=== PATIENT | female | born 1940 | race Caucasian/White ===

== ENCOUNTER → 2018-04-08 | Outpatient (CLI) | payer MEDICARE, OTHER ==
[~2018-04-08] MED LIST: ACET325 PO; ACETASOL; AMOCLA875 PO; ASCO500 PO; ASPI325; ASPI81CH PO; ASPI81EC PO; ASTEPRO; CALCAVITD PO; CALCIT950 PO; CALGLU500; CETI5; CETI5 PO; CINNAMON CAPS; CRANBERRY CAPS; CRANBERRY CAPSULE PO; CREON DR 12,001 EACH; CYAN1000 PO; CYAN500 PO; CYCL0.05OP; CYCL0.05OP OP; Cortisporin Ear10 M1; ERGO50000 PO; FEXO180 PO; FEXO60; FISH1000 PO; FLAX PO; FLUO10 PO; FLUT.05NI; GABA100 PO; GABA300 PO; GABA600 PO; GARLIC; GLUC500; GLUCOSAMINE/MSM; GLUCOSAMINE/MSM PO; GLYMET1.25; GLYMET5 PO; HYDACE10B PO; HYDACE5 PO; HYOS.125; IPRA.03NI; Keflex500 MG PO; LATA.005SO; LEVFLO500 PO; LEVSOD100; LEVSOD100 PO; LEVSOD50 PO; MECL25 PO; METF500; MOMENI; MULVITMINF PO; NAPR550 PO; NIAC500 PO; OPTLUBOPOA OD; PARO12.5; PHENA200 PO; PRAV20 PO; PSEU120ER PO; QUIN300 PO; QUININE; RECTICARE BOTHEYES; RESTASIS; ROSU5 PO; SELENIUM; SELENIUM PO; SUDAFED; SULTRIDS PO; TOCO1000 PO; TOCO400 PO; TRAACE PO; TRAM50 PO; TRAV.004OP OD; VARE1 PO; VIT E; Valium5 MG PO; [UNRECOGNIZED DRUG - CODE]; [UNRECOGNIZED DRUG - OTHER]
== END | disposition home or self-care (01) ==
LOC: LAB EV 16:22 → LAB SHORT 16:22
DX: N76.0 Acute vaginitis (principal)
CPT/HCPCS: 87086

== ENCOUNTER → 2018-11-17 | Outpatient (CLI) | payer MEDICARE, OTHER ==
[~2018-11-17] MED LIST changes: +CHOL10002 PO; +CYCL0.05OP BOTHEYES; +HYDCHL25 PO
== END ==
LOC: LAB SHORT 13:53 → LAB EV 13:53
DX: J02.9 Acute pharyngitis, unspecified (principal)
CPT/HCPCS: 87070

== ENCOUNTER 2018-12-31 14:51 | Emergency (ER) | payer MEDICARE ==
[~2018-12-31] VITALS: Ht 162.6 cm; Wt 68.5 kg
[2018-12-31] MEDS ORDERED: TRAM50 (15:06)
[2018-12-31] MEDS ORDERED: Percocet 5-3251 EACH PO (17:07)
[2018-12-31] MEDS ORDERED: ULTRA-LIGHT RO1 EACH MC (17:09)
== END 2018-12-31 17:12 | disposition home or self-care (01) ==
LOC: ER 14:51
DX: S70.01XA Contusion of right hip, initial encounter (principal); F17.200 Nicotine dependence, unspecified, uncomplicated; Z88.2 Allergy status to sulfonamides; Z88.0 Allergy status to penicillin; Z79.899 Other long term (current) drug therapy; Z79.82 Long term (current) use of aspirin; W19.XXXA Unspecified fall, initial encounter
CPT/HCPCS: 73502; 73700; 99284-25

== ENCOUNTER → 2019-03-30 | Outpatient (CLI) | payer MEDICARE ==
[~2019-03-30] MED LIST changes: +Percocet 5-3251 EACH PO; +TRAM50; +ULTRA-LIGHT RO1 EACH MC
== END | disposition home or self-care (01) ==
LOC: LAB SHORT 17:03 → LAB EV 17:03
DX: N39.0 Urinary tract infection, site not specified (principal)
CPT/HCPCS: 87077; 87086; 87186

== ENCOUNTER → 2019-04-23 | Outpatient (CLI) | payer MEDICARE | LOC: LAB SHORT 18:12 → LAB EV 18:12 | DX: N39.0 Urinary tract infection, site not specified (principal) | CPT/HCPCS: 87077; 87086; 87186 ==

== ENCOUNTER → 2019-11-18 | Outpatient (CLI) | payer MEDICARE | END | disposition home or self-care (01) | LOC: LAB SHORT 17:06 → LAB EV 17:06 | DX: N39.0 Urinary tract infection, site not specified (principal) | CPT/HCPCS: 87086 ==

== ENCOUNTER → 2020-06-18 | Outpatient (CLI) | payer MEDICARE | END | disposition home or self-care (01) | LOC: LAB EV 15:24 → LAB SHORT 15:24 | DX: N39.0 Urinary tract infection, site not specified (principal) | CPT/HCPCS: 87077; 87086; 87186 ==

== ENCOUNTER 2020-09-12 01:10 | Emergency (ER) | payer MEDICARE ==
[~2020-09-12] VITALS: Ht 165.1 cm; Wt 60.3 kg
== END 2020-09-12 02:22 | disposition home or self-care (01) ==
LOC: ER 01:10
DX: H57.13 Ocular pain, bilateral (principal); T50.991A Poisoning by other drugs, medicaments and biological substances, accidental (unintentional), initial encounter; E11.9 Type 2 diabetes mellitus without complications; E78.5 Hyperlipidemia, unspecified; E03.9 Hypothyroidism, unspecified; N39.0 Urinary tract infection, site not specified; F17.200 Nicotine dependence, unspecified, uncomplicated; Z77.098 Contact with and (suspected) exposure to other hazardous, chiefly nonmedicinal, chemicals; Z88.2 Allergy status to sulfonamides; Z88.0 Allergy status to penicillin; Z79.899 Other long term (current) drug therapy; Z79.82 Long term (current) use of aspirin; Z87.442 Personal history of urinary calculi
CPT/HCPCS: 99283

== ENCOUNTER → 2020-10-01 | Outpatient (CLI) | payer MEDICARE | LOC: LAB SHORT 13:59 | DX: R30.0 Dysuria (principal) | CPT/HCPCS: 87086 ==

== ENCOUNTER → 2021-06-17 | Outpatient (CLI) | payer MEDICARE | LOC: LAB SHORT 15:08 → LAB 15:08 | DX: R30.0 Dysuria (principal); Z88.0 Allergy status to penicillin; Z88.2 Allergy status to sulfonamides | CPT/HCPCS: 87086 ==

== ENCOUNTER 2021-11-24 22:39 | Emergency (ER) | payer MEDICARE ==
[~2021-11-24] VITALS: Ht 162.6 cm; Wt 55.3 kg
== END 2021-11-25 01:00 | disposition home or self-care (01) ==
LOC: ER 22:39
DX: M25.552 Pain in left hip (principal); Z88.2 Allergy status to sulfonamides; Z88.0 Allergy status to penicillin; Z79.899 Other long term (current) drug therapy; Z79.82 Long term (current) use of aspirin; E11.9 Type 2 diabetes mellitus without complications; E78.5 Hyperlipidemia, unspecified; E03.9 Hypothyroidism, unspecified; F17.200 Nicotine dependence, unspecified, uncomplicated
CPT/HCPCS: 72100; 72170; 99284-25

== ENCOUNTER → 2021-12-02 | Outpatient (CLI) | payer MEDICARE ==
[2021-12-02 13:35] LABS: BASOPHILS ABSOLUTE AUTO 0.03 K/mm3 (0.00-0.23); BASOPHILS PERCENT AUTO 0 % (0-2); EOSINOPHILS PERCENT AUTO 0 % (0-6); Hematocrit 37.2 % (33.0-51.0); Hemoglobin 11.9 g/dL (11.5-16.0); IMMATURE GRAN ABSOLUTE AUTO 0.15 K/mm3 (0.00-0.10); IMMATURE GRAN PERCENT AUTO 1 % (0-1); LYMPHOCYTES ABSOLUTE AUTO 0.45 K/mm3 (0.84-5.20); LYMPHOCYTES PERCENT AUTO 2 % (21-46); MONOCYTES ABSOLUTE AUTO 0.66 K/mm3 (0.16-1.47); MONOCYTES PERCENT AUTO 3 % (4-13); Mean Corpuscular HGB 29.8 pg (26.0-34.0); Mean Corpuscular Volume 93 fL (80-100); NEUTROPHILS ABSOLUTE AUTO 20.46 K/mm3 (1.96-9.15); NEUTROPHILS PERCENT AUTO 94 % (41-73); Platelet Count 407 K/mm3 (150-400); RDW Coefficient Variation 17.6 % (11.7-14.2); RDW Standard Deviation 60.8 fL (35.1-46.3); Red Blood Cell Count 3.99 M/mm3 (3.80-5.20); White Blood Cell Count 21.75 K/mm3 (4.00-11.30)
[2021-12-02 13:54] LABS: Alanine Aminotransfer (ALT/SGP 37 U/L (12-78); Albumin, Blood 2.6 g/dL (3.4-5.0); Albumin/Globulin Ratio 0.6 (0.8-1.8); Alk Phos 119 U/L (50-136); Anion Gap 6 mmol/L (6-16); Aspartate Aminotrans (AST/SGOT 16 U/L (12-37); Bilirubin, Total 0.3 mg/dL (0.1-1.0); Blood Urea Nitrogen 19 mg/dL (8-24); Bun/Creatinine Ratio 40.7 (12.0-20.0); CO2, Blood 27 mmol/L (21-32); Calcium, Blood 7.5 mg/dL (8.5-10.1); Chloride, Blood 100 mmol/L (98-108); Creatinine, Blood 0.47 mg/dL (0.40-1.00); Globulin, Blood 4.5 g/dL (2.2-4.0); Glomerular Filtration Rate >60 (60-); Glucose, Blood 124 mg/dL (70-99); Potassium, Blood 4.3 mmol/L (3.5-5.5); Sodium, Blood 133 mmol/L (136-145); Total Protein, Blood 7.1 g/dL (6.4-8.2)
== END | disposition home or self-care (01) ==
LOC: LAB SHORT 13:24
PROVIDERS: Internal Medicine Hematology & Oncology
DX: C34.90 Malignant neoplasm of unspecified part of unspecified bronchus or lung (principal)
CPT/HCPCS: 80053; 85025

== ENCOUNTER → 2021-12-04 | Outpatient (CLI) | payer MEDICARE ==
[2021-12-04 14:12] LABS: Hematocrit 36.2 % (33.0-51.0); Hemoglobin 12.1 g/dL (11.5-16.0); Mean Corpuscular HGB 30.5 pg (26.0-34.0); Mean Corpuscular HGB Conc 33.4 g/dL (31.5-36.5); Mean Corpuscular Volume 91 fL (80-100); Mean Platelet Volume 10.2 fL (9.1-12.4); Platelet Count 345 K/mm3 (150-400); RDW Coefficient Variation 17.4 % (11.7-14.2); RDW Standard Deviation 58.2 fL (35.1-46.3); Red Blood Cell Count 3.97 M/mm3 (3.80-5.20)
[2021-12-04 14:35] LABS: Alanine Aminotransfer (ALT/SGP 26 U/L (12-78); Albumin, Blood 2.8 g/dL (3.4-5.0); Albumin/Globulin Ratio 0.6 (0.8-1.8); Alk Phos 149 U/L (50-136); Anion Gap 7 mmol/L (6-16); Aspartate Aminotrans (AST/SGOT 13 U/L (12-37); Bilirubin, Total 0.6 mg/dL (0.1-1.0); Blood Urea Nitrogen 22 mg/dL (8-24); Bun/Creatinine Ratio 48.2 (12.0-20.0); CO2, Blood 30 mmol/L (21-32); Calcium, Blood 8.2 mg/dL (8.5-10.1); Chloride, Blood 91 mmol/L (98-108); Creatinine, Blood 0.46 mg/dL (0.40-1.00); Globulin, Blood 4.7 g/dL (2.2-4.0); Glomerular Filtration Rate >60 (60-); Glucose, Blood 100 mg/dL (70-99); Potassium, Blood 4.2 mmol/L (3.5-5.5); Sodium, Blood 128 mmol/L (136-145); Total Protein, Blood 7.5 g/dL (6.4-8.2)
[2021-12-04 14:48] LABS: BAND PERCENT MAN 14 % (0-8); BASOPHILS PERCENT MAN 0 % (0-2); EOSINOPHILS PERCENT MAN 0 % (0-6); METAMYELOCYTE ABSOLUTE MAN 2.77 K/mm3 (0.00-0.00); METAMYELOCYTE PERCENT MAN 3 % (0-0); TOTAL CELLS COUNTED 100
[2021-12-04 14:51] LABS: MONOCYTES PERCENT MAN 0 % (4-13); MYELOCYTE ABSOLUTE MAN 1.84 K/mm3 (0.00-0.00); MYELOCYTE PERCENT MAN 2 % (0-0); NEUTROPHILS ABSOLUTE MAN 87.85 K/mm3 (1.96-9.15); SEG NEUTROPHILS PERCENT MAN 81 % (41-73)
[2021-12-04 15:14] LABS: White Blood Cell Count 92.48 K/mm3 (4.00-11.30)
== END ==
LOC: LAB SHORT 13:15 → LAB 13:15
PROVIDERS: Psychologist School
DX: R50.9 Fever, unspecified (principal)
CPT/HCPCS: 80053; 85025